=== PATIENT | female | born 1990 | race African-American/Black ===

== ENCOUNTER 2017-09-30 11:37 | Emergency (ER) | payer MEDICAID ==
[~2017-09-30] VITALS: Ht 172.7 cm; Wt 113.4 kg
[2017-09-30 11:52] VITALS: BP 146/71
[2017-09-30] MEDS ORDERED: KETOROLAC TROMETH 60MG/2ML VIAL IM ONE (12:45)
== END 2017-09-30 13:32 | disposition home or self-care (01) ==
LOC: ER 11:37
DX: M43.6 Torticollis (principal); Z88.0 Allergy status to penicillin
CPT/HCPCS: 96372; 99283; J1885

== ENCOUNTER 2021-11-07 10:38 | Observation (INO) | payer MEDICAID ==
[~2021-11-07] VITALS: Ht 172.7 cm; Wt 120.7 kg
[2021-11-07] MEDS ORDERED: TERBUTALINE SULFATE 1 MG/ML 1ML VIAL SC SCH (11:15)
[2021-11-07] MEDS ORDERED: ceFAZolin 2 GM in D5W 5% 100 ML IV ONE (11:15)
[2021-11-07] MEDS ORDERED: LACTATED RINGER'S 1,000 ML IV ONE (11:15)
[2021-11-07 12:33] LABS: Alcohol, Urine < 3.0 mg/dL (0-10); Amphetamine Screen, Urine NEGATIVE (NEGATIVE); Barbiturate Scree,Urine NEGATIVE (NEGATIVE); Benzodiazephine Screen, Urine NEGATIVE (NEGATIVE); Cannabinoid Screen, Urine NEGATIVE (NEGATIVE); Cocaine Screen, Urine NEGATIVE (NEGATIVE); Opiate Scree,Urine NEGATIVE (NEGATIVE); Phencyclidine Screen, Urine NEGATIVE (NEGATIVE); Urine Bacteria MANY /hpf (None Seen); Urine Blood 3+ /uL (Negative); Urine Budding Yeast OCCASIONAL /hpf (None Seen); Urine Mucus FEW (None Seen); Urine WBC 352 /hpf (0 - 5)
== END 2021-11-07 14:37 | disposition home or self-care (01) ==
LOC: LDRP 10:38
PROVIDERS: ADMIT Obstetrics & Gynecology; ATTEND Obstetrics & Gynecology
DX: O26.892 Other specified pregnancy related conditions, second trimester (principal); R10.9 Unspecified abdominal pain; Z3A.25 25 weeks gestation of pregnancy; Z79.899 Other long term (current) drug therapy
CPT/HCPCS: 59025; 76775; 76805; 80307; 81001; 81002; 94760; 96365; G0378; J0690; J7060